=== PATIENT | female | born 1960 | race American Indian/Alaskan Native ===

== ENCOUNTER 2017-03-04 22:46 | Emergency (ER) | payer OTHER ==
[2017-03-04] MEDS ORDERED: TYLENOL ONE (22:50)
[2017-03-04] MEDS ORDERED: TYLENOL PO ONE (22:56)
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
[2017-03-05] MEDS ORDERED: MOTRIN PO ONE (01:13)
[2017-03-05 02:27] VITALS: BP 123/76
== END 2017-03-05 02:27 | disposition home or self-care (01) ==
LOC: ED 22:46
DX: D16.01 Benign neoplasm of scapula and long bones of right upper limb (principal); M25.511 Pain in right shoulder; M54.5 Low back pain; Z79.82 Long term (current) use of aspirin; Z87.891 Personal history of nicotine dependence; V89.2XXA Person injured in unspecified motor-vehicle accident, traffic, initial encounter; Y93.89 Activity, other specified; Y99.9 Unspecified external cause status; Y92.410 Unspecified street and highway as the place of occurrence of the external cause
CPT/HCPCS: 72100